=== PATIENT | male | born 1950 | race Caucasian/White ===

== ENCOUNTER 2017-06-22 15:45 | Observation (INO) | payer MEDICARE, OTHER ==
[2017-06-22 16:54] LABS: BLOOD GAS HEMOGLOBIN 12.6 g/dL (11.7-17.4); CARBOXYHEMOGLOBIN 2.2 % (0.5-1.5); HHB 17.2 % (0.0-5.0); METHEMOGLOBIN 2.1 % (0.0-3.0); VENOUS BLOOD GAS BASE EXCESS 4.7 mmol/L (0.0-2.0); VENOUS BLOOD GAS PCO2 37 mmHg (40-60); VENOUS BLOOD HGB O2 SAT 78.5 % (95.0-98.0); VENOUS BLOOD PH 7.49 (7.32-7.43)
[2017-06-22 16:57] LABS: BASO # 0.1 K/uL (0.0-0.2); BASO % 0.8 % (0.0-2.0); EOS # 0.1 K/uL (0.0-0.7); EOS % 1.4 % (0.0-4.0); LYMPH # 2.2 K/uL (1.0-4.3); MEAN CELL VOLUME 90.2 fl (80.0-94.0); MEAN CORPUSCULAR HEMOGLOBIN 30.6 pg (27.0-31.0); MEAN CORPUSCULAR HGB CONC 33.9 g/dL (33.0-37.0); MEAN PLATELET VOLUME 9.5 fl (7.2-11.7); MONO # 0.8 K/uL (0.0-0.8); NEUT # 5.7 K/uL (1.8-7.0); NEUT % 63.8 % (50.0-75.0); RED CELL DISTRIBUTION WIDTH 13.2 % (11.5-14.5); WHITE BLOOD COUNT 8.9 K/uL (4.8-10.8)
--- NOTE | 2017-06-22 17:00 | ED PDOC ---
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 Patient exposed to strong sulfur type fumes at 10-11am. Patient felt dizziness and then chest pain. Chest pain subsided 30 min CERAMIST but dizziness and "shakiness" still present. Past Medical History Reviewed: Historical Data, Nursing Documentation, Vital Signs Vital Signs: Last Vital Signs Temp 98.6 F 06/22/17 18:15 Pulse 88 06/22/17 18:15 Resp 19 06/22/17 18:15 BP 117/77 06/22/17 18:15 Pulse Ox 96 06/22/17 18:15 - Medical History PMH: HTN, Hypercholesterolemia, Hypothyroidism, Kidney Stones, Chronic Kidney Disease - Family History Family History: States: Unknown Family Hx - Living Arrangements Living Arrangements: With Family - Social History Current smoker - smoking cessation education provided: No - Home Medications Home Medications: Ambulatory Orders Medication Instructions Recorded Aspirin [Ecotrin] 81 mg PO DAILY 06/22/17 Enalapril Maleate [Vasotec] 10 mg PO DAILY 06/22/17 Glipizide [Glipizide Xl] 5 mg PO DAILY 06/22/17 Levothyroxine [Synthroid] 25 mcg PO DAILY 06/22/17 Meloxicam [Mobic] 15 mg PO DAILY 06/22/17 MetFORMIN [glucoPHAGE] 1,000 mg PO BID 06/22/17 Omeprazole [Omeprazole] 20 mg PO DAILY 06/22/17 Simvastatin [Zocor] 20 mg PO DAILY 06/22/17 hydroCHLOROthiazide [Hydrodiuril] 25 mg PO DAILY 06/22/17 - Allergies Allergies/Adverse Reactions: Allergies Allergy/AdvReac Type Severity Reaction Status Date / Time No Known Allergies Allergy Verified 08/18/14 08:37 RASHAWN Risk Score for UA/NSTEMI - RASHAWN Risk Score Age > 64: YES 3 or more CAD Risk Factors: NO Known CAD (Stenosis greater than 50%): NO Aspirin use in past 7 days: NO Severe Angina: NO EKG ST changes greater than 0.5mm: NO Positive Cardiac Marker: NO RASHAWN Score: 1 Risk %: 5% Review of Systems ROS Statement: Except As Marked, All Systems Reviewed And Found Negative Constitutional: Negative for: Fever, Chills Cardiovascular: Positive for: Chest Pain. Negative for: Palpitations Respiratory: Negative for: Cough, Shortness of Breath Gastrointestinal: Negative for: Nausea, Vomiting, Abdominal Pain Genitourinary Male: Negative for: Dysuria Neurological: Positive for: Dizziness. Negative for: Weakness, Numbness Physical Exam - Reviewed Nursing Documentation Reviewed: Yes Vital Signs Reviewed: Yes - Physical Exam Head Exam: Positive for: ATRAUMATIC, NORMAL INSPECTION, NORMOCEPHALIC Eye Exam: Positive for: Normal appearance, EOMI, PERRL Neck: Positive for: Normal, Painless ROM, Supple Cardiovascular/Chest: Positive for: Regular Rate, Rhythm, Chest Non Tender Respiratory: Positive for: Normal Breath Sounds. Negative for: Decreased Breath Sounds, Accessory Muscle Use, Crackles, Rales, Rhonchi, Stridor, Wheezing , Respiratory Distress Pulses-Radial (L): 2+ Pulses-Radial (R): 2+ Gastrointestinal/Abdominal: Positive for: Normal Exam, Bowel Sounds, Soft. Negative for: Tenderness Back: Positive for: Normal Inspection. Negative for: L CVA Tenderness, R CVA Tenderness Extremity: Positive for: Normal ROM. 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 Negative for: Motor/Sensory Deficits - Laboratory Results Result Diagrams: 06/22/17 16:40 06/22/17 16:40 - ECG ECG: Positive for: Interpreted By Sd ECG Rhythm: Positive for: Normal QRS, Normal ST Segment, Sinus Tachycardia. Negative for: ST/T Changes Interpretation Of Abn EKG: no evidence of ischemia O2 Sat by Pulse Oximetry: 98 Pulse Ox Interpretation: Normal - Radiology X-Ray: Interpreted by Sd X-Ray Interpretation: No Acute Disease - Progress ED Course And Treament: two neg trop r/o Mi advise close f/u with cards advise no exertion including sexual until seen by cardiology. pt leaves ambulatory and in good spirits. Re-evaluation Time: 21:14 Condition: Improved Disposition - Clinical Impression Clinical Impression: Chest pain, Dizziness - Patient ED Disposition Is Patient to be Admitted: No Counseled Patient/Family Regarding: Studies Performed, Diagnosis, Need For Followup - Disposition Disposition: Routine/Home Disposition Time: 21:16 Condition: GOOD
[2017-06-22 17:03] LABS: ALB/GLOB RATIO 1.3 (1.0-2.1); BLOOD UREA NITROGEN 22 mg/dl (9-20); CALCIUM 9.9 mg/dL (8.4-10.2); CARBON DIOXIDE 24 mmol/L (22-30); CHLORIDE 102 mmol/L (98-107); GFR AFRICAN-AMERICAN > 60; GLUCOSE,RANDOM 172 mg/dL (75-110); MAGNESIUM 1.7 MG/DL (1.6-2.3); POTASSIUM 3.7 MMOL/L (3.6-5.0); SODIUM 139 mmol/l (132-148); TOTAL PROTEIN 7.8 G/DL (6.3-8.2)
[2017-06-22 17:04] LABS: ALKALINE PHOSPHATASE 67 U/L (38-126); ALT/SGPT 43 U/L (21-72); AST/SGOT 34 U/L (17-59); BILIRUBIN,TOTAL 0.5 mg/dl (0.2-1.3)
[2017-06-22 17:15] LABS: PARTIAL THROMBOPLASTIN TIME 26.8 Seconds (25.6-37.1)
--- NOTE | 2017-06-22 18:57 | RAD ---
HISTORY: Chest pain COMPARISON: 01/15/2015. FINDINGS: LUNGS: No active pulmonary disease. PLEURA: No significant pleural effusion identified, no pneumothorax apparent. CARDIOVASCULAR: No radiographic findings to suggest acute or significant cardiovascular disease. OSSEOUS STRUCTURES: No significant abnormalities. VISUALIZED UPPER ABDOMEN: Normal. OTHER FINDINGS: None. IMPRESSION: No active disease. No significant interval change compared to the prior examination(s).
[2017-06-22 22:10] VITALS: BP 126/78; PULSE 82; RESP 17; TEMP 98.2; O2SAT 99
--- NOTE | 2017-06-23 11:23 | CARD ---
APPROVED REPORT EKG Measurement Heart [id number] CT 178P31 [id number] <Conclusion> Sinus tachycardia Cannot rule out Anterior infarct, age undetermined Abnormal ECG
== END 2017-06-22 21:26 | disposition home or self-care (01) ==
LOC: H.ER 15:45 → H.EROBSV 18:03
PROVIDERS: ADMIT Emergency Medicine; ATTEND Emergency Medicine
DX: R07.89 Other chest pain (principal); E03.9 Hypothyroidism, unspecified; E78.00 Pure hypercholesterolemia, unspecified; I12.9 Hypertensive chronic kidney disease with stage 1 through stage 4 chronic kidney disease, or unspecified chronic kidney disease; N18.9 Chronic kidney disease, unspecified; Z87.442 Personal history of urinary calculi; Z79.1 Long term (current) use of non-steroidal anti-inflammatories (NSAID); Z79.82 Long term (current) use of aspirin; Z79.899 Other long term (current) drug therapy; Z79.84 Long term (current) use of oral hypoglycemic drugs; R42 Dizziness and giddiness
CPT/HCPCS: 71010; 80053; 82803; 82948; 83735; 84484; 85025; 85610; 85730; 93005; 99285; G0378

== ENCOUNTER 2018-02-09 08:29 | Emergency (ER) | payer MEDICARE, SELFPAY ==
[2018-02-09 08:34] VITALS: BMI 37.9
[2018-02-09 08:36] VITALS: BP 124/70; PULSE 73; RESP 20; TEMP 98.3; O2SAT 100
== END 2018-02-09 09:39 | disposition left against medical advice (07) ==
LOC: H.ER 08:29
DX: Z02.89 Encounter for other administrative examinations (principal)

== ENCOUNTER 2018-09-25 14:25 | Emergency (ER) | payer MEDICARE, SELFPAY ==
[2018-09-25 14:25] VITALS: BMI 37.9
[2018-09-25] MEDS ORDERED: Sodium Chloride 0.9% 500 ML IV STA (15:22)
--- NOTE | 2018-09-25 15:38 | ED PDOC ---
Hyperglycemia/Hypoglycemia Time Seen by Provider: 09/25/18 15:06 Chief Complaint (Nursing): High Blood Sugar Chief Complaint (Provider): High Blood Sugar History Per: Patient History/Exam Limitations: no limitations Onset/Duration Of Symptoms: Hrs (2.5), Intermittent Episodes (of chest tightness) Associated Infectious Symptoms: Other (Chest pain, fatigue, generalized weakness, near syncope) : The patient does not have any of the infectious symptoms listed except for those marked. Additional Complaint(s): 67 years old male with history of diabetes, hypertension, high cholesterol and hypothyroidism presents to ER for evaluation of generalized weakness, fatigue and near syncope around 1pm while at rest. Patient reports at that time he checked his sugar and was found 450. He states he had this feeling over the last week with elevated sugar level, but today symptoms got more tense, prompting ED visit. Patient also reports having intermittent chest tightness a week ago associated with left shoulder pain, which felt it last time yesterday. He states chest pain resolves spontaneously after couple of seconds. Patient complains of bilateral leg aches and tingling radiating from lateral legs down to feet ongoing for about 3-4 weeks. He reports he was seen by his PMD yesterday but did not mention anything about these episodic events. PMD: Dr. Parker Past Medical History Reviewed: Historical Data, Nursing Documentation, Vital Signs Vital Signs: Last Vital Signs Temp 98.1 F 09/25/18 14:39 Pulse 80 09/25/18 14:39 Resp 16 09/25/18 14:39 BP 120/82 09/25/18 14:39 Pulse Ox 97 09/25/18 14:39 - Medical History PMH: Diabetes, HTN, Hypercholesterolemia, Hypothyroidism, Kidney Stones, Chronic Kidney Disease - Surgical History Surgical History: Hernia Repair Other surgeries: Brain surgery for traumatic bleed - Family History Family History: States: Diabetes, Hypertension - Social History Current smoker - smoking cessation education provided: No Alcohol: None Drugs: Denies - Home Medications Home Medications: Ambulatory Orders Medication Instructions Recorded Glipizide [Glipizide Xl] 5 mg PO DAILY 06/22/17 Levothyroxine [Synthroid] 25 mcg PO DAILY 06/22/17 Meloxicam [Mobic] 15 mg PO DAILY 06/22/17 Omeprazole 20 mg PO DAILY 06/22/17 RX: Aspirin [Ecotrin] 81 mg PO DAILY 06/22/17 RX: Enalapril Maleate [Vasotec] 10 mg PO DAILY 06/22/17 RX: MetFORMIN [glucoPHAGE] 1,000 mg PO BID 06/22/17 RX: hydroCHLOROthiazide 25 mg PO DAILY 06/22/17 [Hydrodiuril] Simvastatin [Zocor] 20 mg PO DAILY 06/22/17 - Allergies Allergies/Adverse Reactions: Allergies Allergy/AdvReac Type Severity Reaction Status Date / Time No Known Allergies Allergy Verified 08/18/14 08:37 Review of Systems ROS Statement: Except As Marked, All Systems Reviewed And Found Negative Constitutional: Positive for: Other (Fatigue) Musculoskeletal: Positive for: Leg Pain (bilateral aches and tingling), Foot Pain (bilateral aches and tingling) Neurological: Positive for: Weakness (Generalized) Physical Exam - Reviewed Nursing Documentation Reviewed: Yes Vital Signs Reviewed: Yes - Physical Exam Appears: Positive for: No Acute Distress (Tired appearing) Head Exam: Positive for: ATRAUMATIC, NORMOCEPHALIC Skin: Positive for: Warm, Dry Eye Exam: Positive for: EOMI, PERRL ENT: Positive for: Pharynx Is (clear), Other (Dry mucous membrane) Neck: Positive for: Painless ROM, Supple Cardiovascular/Chest: Positive for: Regular Rate, Rhythm. Negative for: Murmur Respiratory: Positive for: Normal Breath Sounds. Negative for: Respiratory Distress Gastrointestinal/Abdominal: Positive for: Soft. Negative for: Tenderness Back: Positive for: Normal Inspection. Negative for: Decreased ROM Extremity: Positive for: Normal ROM. Negative for: Deformity Lymphatic: Negative for: Adenopathy Neurologic/Psych: Positive for: Alert, Oriented (x3). Negative for: Motor/Senso ry Deficits - Laboratory Results Result Diagrams: 09/25/18 16:01 09/25/18 16:01 - ECG O2 Sat by Pulse Oximetry: 97 (RA) Pulse Ox Interpretation: Normal Medical Decision Making Medical Decision Making: Time: 151 Initial Impression: episodic weakness. Differential includes but not limited to uncontrolled diabetes, electrolyte abnormality, anemia, dehydration, UTI, and atypical angina Initial Plan: --EKG --Alcohol serum --BTN --CMP --Magnesium --Phosphorous --TSH --Troponin --Urine dipstick --CBC --NaCl 500 ml IV Udip demonstrated trace ketones. bloodwork demonstrated hyperglycemia but otherwise normal (normal anion gap as well.) On reeval, pt feels better after IVF. DW pt findings and plan of care: increase water intake, strict diabetic diet, f/u PMD to review meds. Pt stable and eager to be discharged. Scribe Attestation: Documented by Clare Funes, acting as a scribe for Yessi Baez MD. Provider Scribe Attestation: All medical record entries made by the Scribe were at my direction and personally dictated by me. I have reviewed the chart and agree that the record accurately reflects my personal performance of the history, physical exam, medical decision making, and the department course for this patient. I have also personally directed, reviewed, and agree with the discharge instructions and disposition. Disposition - Clinical Impression Clinical Impression: Hyperglycemia - Disposition Referrals: Louise Parker MD [Family Provider] - 09/26/18 (FOLLOW UP WITH YOUR DOCTOR BY END OF WEEK TO REVIEW YOUR DIABETES MEDICATIONS.) Disposition: Routine/Home Disposition Time: 17:45 Condition: IMPROVED Additional Instructions: STRICT DIABETIC DIET AND DRINK PLENTY OF WATER. Instructions: Hyperglycemia, Adult (DC) Forms: Buzz Referrals ([place]i)
[2018-09-25 16:07] LABS: BASO # 0.1 K/uL (0.0-0.2); BASO % 1.5 % (0.0-2.0); EOS # 0.2 K/uL (0.0-0.7); EOS % 2.1 % (0.0-4.0); HEMOGLOBIN 13.5 g/dL (12.0-18.0); LYMPH % 25.3 % (20.0-40.0); MEAN CELL VOLUME 90.6 fl (80.0-94.0); MEAN CORPUSCULAR HEMOGLOBIN 29.6 pg (27.0-31.0); MEAN CORPUSCULAR HGB CONC 32.7 g/dL (33.0-37.0); MEAN PLATELET VOLUME 9.7 fl (7.2-11.7); MONO # 0.8 K/uL (0.0-0.8); MONO % 10.4 % (0.0-10.0); NEUT # 4.8 K/uL (1.8-7.0); NEUT % 60.7 % (50.0-75.0); NRBC % 0.1 % (0.0-0.0); RBC 4.56 Mil/uL (4.40-5.90); RED CELL DISTRIBUTION WIDTH 13.3 % (11.5-14.5); WHITE BLOOD COUNT 7.9 K/uL (4.8-10.8)
[2018-09-25 16:26] LABS: ALB/GLOB RATIO 1.2 (1.0-2.1); ALBUMIN 4.1 g/dL (3.5-5.0); ALT/SGPT 52 U/L (21-72); AST/SGOT 31 U/L (17-59); BLOOD UREA NITROGEN 20 mg/dl (9-20); CALCIUM 9.4 mg/dL (8.4-10.2); GFR NON-AFRICAN AMERICAN > 60
[2018-09-25 16:34] LABS: B-TYPE NATRIURETIC PEPTIDE 18.5 pg/ml (0-900)
[2018-09-25 17:59] VITALS: BP 132/80; PULSE 72; RESP 18; TEMP 97.8
[2018-09-25 19:13] VITALS: O2SAT 97
--- NOTE | 2018-09-26 06:22 | CARD ---
APPROVED REPORT Date of service: 09/25/2018 EKG Measurement Heart [id number] 180P27 [id number] <Conclusion> Normal sinus rhythm Normal ECG
== END 2018-09-25 17:50 | disposition home or self-care (01) ==
LOC: H.ER 14:25
DX: E11.65 Type 2 diabetes mellitus with hyperglycemia (principal); Z79.84 Long term (current) use of oral hypoglycemic drugs; I12.9 Hypertensive chronic kidney disease with stage 1 through stage 4 chronic kidney disease, or unspecified chronic kidney disease; E78.00 Pure hypercholesterolemia, unspecified; E03.9 Hypothyroidism, unspecified
CPT/HCPCS: 80053; 82948; 83735; 83880; 84100; 84443; 84484; 85025; 93005; 96360; 99284; G0480; J7040